=== PATIENT | female | born 1945 ===

== ENCOUNTER 2024-06-18 06:00 | Day surgery (SDC) | payer OTHER ==
[2024-06-17 13:58] LABS: HEMATOCRIT 34.4 % (36.0-45.00); HEMOGLOBIN 11.7 g/dL (12.0-15.00); MEAN CELL VOLUME 87.3 fL (80.00-100.00); MEAN CORPUSCULAR HEMOGLOBIN 29.7 pg (27.00-32.0); MEAN CORPUSCULAR HGB CONC 34.1 g/dl (32.0-36.0); PLATELET COUNT 239 K/uL (150-450); RED BLOOD COUNT 3.94 M/uL (4.00-6.00)
[2024-06-17 14:22] LABS: BILIRUBIN TOTAL 0.57 mg/dL (0.3-1.2); CALCIUM 9.7 mg/dL (8.5-10.1); CREATININE SERUM 0.7 mg/dL (0.55-1.02); GFR 80.72; GLOBULINA 3.9 G/DL (2.4-3.5); POTASSIUM 3.76 mEq/L (3.5-5.1); TOTAL PROTEIN 7.9 gm/dL (6.4-8.2)
[2024-06-17 14:47] LABS: INR 0.98; PARTIAL THROMBOPLASTIN TIME 26.5 SECONDS (22.0-34.0); PROTHROMBIN TIME 9.9 SECONDS (9.0-11.5)
[2024-06-17 14:56] LABS: PH,URINE 5.5 (5.0-8.0); URINE APPEARANCE Clear; URINE BILIRRUBIN Negative (NEGATIVE); URINE BLOOD Negative; URINE COLOR Yellow; URINE GLUCOSE Negative (NEGATIVE); URINE LEUKOCYTE Negative; URINE NITRATE Negative; URINE PROTEIN Negative (NEGATIVE); URINE UROBILINOGEN 0.2 E.U./dl
[2024-06-17 15:00] LABS: URINE RBC 8.8 uL (0.0-20.8)
[2024-06-17 15:04] LABS: URINE BACTERIA 3.7 uL (0.0-1933); URINE WBC 0.7 uL (0.0-23.2)
[2024-06-18] MEDS ORDERED: VANCOMYCIN HCL 1,000 MG VIAL ONE (07:30)
[2024-06-18] MEDS ORDERED: ISOPROPYL ALCOHOL 30 ML OUNCE TOP ONE (11:45)
[2024-06-18] MEDS ORDERED: PERCOCET 5-3251 EACH PO (12:41)
[2024-06-18] MEDS ORDERED: CIPRO500 MG PO (12:41)
[2024-06-18] MEDS ORDERED: ALEVE220 M1 PO (12:41)
== END 2024-06-18 14:40 | disposition home or self-care (01) ==
LOC: CIR.AMB 06:00
PROVIDERS: ATTEND Orthopaedic Surgery
DX: S46.012A Strain of muscle(s) and tendon(s) of the rotator cuff of left shoulder, initial encounter (principal); M19.012 Primary osteoarthritis, left shoulder; M65.812 Other synovitis and tenosynovitis, left shoulder; Z88.0 Allergy status to penicillin; I10 Essential (primary) hypertension